=== PATIENT | female | born 1980 | race Caucasian/White ===

== ENCOUNTER 2016-05-27 19:29 | Emergency (ER) | payer BC ==
[2016-05-27 19:52] VITALS: BP 137/85
[2016-05-27] MEDS ORDERED: Ketorolac 30 MG/ML SDV IM ONE (20:19)
--- NOTE | 2016-05-27 20:23 | EDM.PDOC ---
ED HPI Trauma - General Chief Complaint: Upper Extremity Injury/Pain Stated Complaint: RT HAND Time Seen by Provider: 05/27/16 20:20 Source: Reports: Patient History Limitations: Reports: No limitations - History of Present Illness INITIAL COMMENTS - FREE TEXT/NARRATIVE: woke up with swelling dorsal right hand, denies injury, gives h/o RA but not seen specialist for Rx till next month. taking daily prednisone for RA. Allergies/ADRs: Allergies No Known Allergies Allergy (Verified 05/27/16 19:52) Home Medications: Ambulatory Orders Venlafaxine [Effexor XR 24 Hr] 75 mg PO DAILY 05/27/16 [Confirmed 05/27/16] predniSONE 5 mg PO ASDIRECTED 05/27/16 [Confirmed 05/27/16] Past Medical History Gastrointestinal History: Reports: GERD Musculoskeletal History: Reports: Arthritis, RA Psychiatric History: Reports: Anxiety - Past Surgical History GI Surgical History: Reports: Cholecystectomy, Other (see below) Other GI Surgeries/Procedures: barrets esoph. Social & Family History - Tobacco Use Smoking Status *Q: Never Smoker Second Hand Smoke Exposure: No - Caffeine Use Caffeine Use: Reports: Energy drinks, Soda - Recreational Drug Use Recreational Drug Use: No Review of Systems - Review of Systems Review Of Systems: ROS reveals no pertinent complaints other than HPI. Trauma Exam - Physical Exam Exam: See Below Exam Limited By: No limitations General Appearance: Reports: alert, WD/WN, mild distress, other (tearful) Head: Reports: atraumatic Ears: Reports: hearing grossly normal Throat/Mouth: Reports: Normal voice, No airway compromise Neck: Reports: non-tender, full range of motion Respiratory Exam: Reports: no respiratory distress Cardiovascular: Reports: regular rate, rhythm GI/Abdominal: Reports: soft, non tender Extremities: Reports: pain with movement, tenderness, other (dorsal right hand local erythema swelling tender R/P, NV wnl.) Neurologic: Reports: alert, oriented x 3 Skin: Reports: Normal color, Warm/dry Course - Vital Signs Last Recorded V/S: Last Vital Signs Temp 36.3 C 05/27/16 19:44 Pulse 64 05/27/16 19:44 Resp 14 05/27/16 19:44 BP 137/85 05/27/16 19:44 Pulse Ox 97 05/27/16 19:44 - Orders/Labs/Meds Meds: Medications Discontinued Medications Generic Name Dose Route Start Last Admin Trade Name Delia PRN Reason Stop Dose Admin Ketorolac Tromethamine 30 mg 05/27/16 20:19 05/27/16 20:38 Toradol IM 05/27/16 20:20 30 mg ONETIME ONE Administration - Re-Assessments/Exams Free Text/Narrative Re-Assessment/Exam: 05/27/16 21:09 s/p IM toradol = much better Departure - Departure Time of Disposition: 21:09 Disposition: Home, Self-Care 01 Condition: good Clinical Impression: Tenosynovitis of finger and hand Instructions: Tendinitis, [id number] Forms: ED Department Discharge Additional Instructions: 1) avoid heavy lifting 2) try ice or heat to sore area 3) follow up at clinic or recheck as needed
== END 2016-05-27 21:23 | disposition home or self-care (01) ==
LOC: DL.ED 19:29
DX: M65.9 Synovitis and tenosynovitis, unspecified (principal); K21.9 Gastro-esophageal reflux disease without esophagitis; M06.9 Rheumatoid arthritis, unspecified; F41.9 Anxiety disorder, unspecified; M19.90 Unspecified osteoarthritis, unspecified site; Z90.49 Acquired absence of other specified parts of digestive tract
CPT/HCPCS: 96372; 99282; J1885